=== PATIENT | male | born 1965 | race Two or more races ===

== ENCOUNTER 2020-10-29 11:10 | Emergency (ER) | payer OTHER ==
[2020-10-29] MEDS ORDERED: Diphtheria,Pertussis(Acell),Tetanus Vaccine 0.5 ML Syringe IM ONE (11:39)
--- NOTE | 2020-10-29 11:46 | EDM.PDOC ---
ED HPI GENERAL MEDICAL PROBLEM - General Chief Complaint: Upper Extremity Injury/Pain Stated Complaint: POSS HAND INFECTION/LAC Time Seen by Provider: 10/29/20 11:24 Source of Information: Reports: Patient, RN Notes Reviewed History Limitations: Reports: No Limitations - History of Present Illness INITIAL COMMENTS - FREE TEXT/NARRATIVE: Patient is a 54-year-old male who presents to the ER via direction from the [facility] clinic for a right hand wound. Patient notes he was at work, Tuesday, was holding onto some heavy machinery as he was getting raised into the air, and he was not paying attention to where his hand was at, and the dorsum of his hand was punctured by the head of the screw. This is about midway into the hand, and seems to be over the 3rd-4th finger distribution mainly. The area itself is open, draining some red blood type fluid. There is mild amount of swelling to the hand noted. Patient notes that the screw did come out intact. States that he went to the occupational med clinic today for evaluation, and was sent here as his tetanus booster was not up-to-date and they had suspected infection. The area is tender, there are no red streaks, that extend further from the injury site. States that he is right-hand dominant. 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 Has been taking Tylenol ibuprofen for the pain and it seems to help a little bit. Patient denies any other sick-like symptoms, fever/chills, cough/shortness of breath, nausea/vomiting/diarrhea. - Related Data Allergies Allergy/AdvReac Type Severity Reaction Status Date / Time No Known Allergies Allergy Verified 10/29/20 11:23 Home Meds: Home Meds Doxycycline [Vibramycin] 100 mg PO BID 7 Days #14 tab 10/29/20 [Rx] Past Medical History - Past Health History Medical/Surgical History: Denies Medical/Surgical History Social & Family History - Tobacco Use Tobacco Use Status *Q: Never Tobacco User Second Hand Smoke Exposure: No - Recreational Drug Use Recreational Drug Use: No Review of Systems - Review of Systems Review Of Systems: Comprehensive ROS is negative, except as noted in HPI. ED EXAM, GENERAL - Physical Exam Exam: See Below Exam Limited By: No Limitations General Appearance: Alert, WD/WN, No Apparent Distress Respiratory/Chest: No Respiratory Distress, Lungs Clear, Normal Breath Sounds, No Accessory Muscle Use, Chest Non-Tender Cardiovascular: Normal Peripheral Pulses, Regular Rate, Rhythm, No Edema Peripheral Pulses: 2+: Radial (L), Radial (R) Extremities: Normal Range of Motion, Normal Capillary Refill Neurological: Alert, Oriented, Normal Cognition, No Motor/Sensory Deficits Psychiatric: Normal Affect, Normal Mood Skin Exam: Warm, Dry, Normal Color, No Rash, Wound/Incision (puncture wound to the R hand dorsum, does have some bloody discharge from the wound, there is a mild amount of swelling noted.) Course - Vital Signs Last Recorded V/S: Last Vital Signs Temp 97.6 F 10/29/20 11:20 Pulse 51 L 10/29/20 11:20 Resp 16 10/29/20 11:20 BP 129/91 H 10/29/20 11:20 Pulse Ox 98 10/29/20 11:20 - Orders/Labs/Meds Orders: Active Orders 24 hr Category Date Time Status Vaccines to be Administered [RC] PER UNIT ROUTINE Care 10/29/20 11:40 Ordered Meds: Medications Discontinued Medications Generic Name Dose Route Start Last Admin Trade Name Freq PRN Reason Stop Dose Admin Diphtheria/Tetanus/Acell Pertussis 0.5 ml 10/29/20 11:39 Diphtheria,Pertussis(Acell),Tetanus Vaccine 0.5 Ml Syringe IM 10/29/20 11:40 .ONCE ONE - Re-Assessments/Exams Free Text/Narrative Re-Assessment/Exam: 10/29/20 11:45 Patient presents to the ER for his puncture wound of his right hand. For toda y's purposes we will go ahead and get him started on doxycycline, and update his tetanus booster, and release him to work with no restrictions. He will be given a work note for today's purposes. Departure - Departure Time of Disposition: 11:46 Disposition: Home, Self-Care 01 Condition: Good Clinical Impression: Puncture wound of hand Qualifiers: Encounter type: initial encounter Foreign body presence: without foreign body Laterality: right Qualified Code(s): S61.431A - Puncture wound without foreign body of right hand, initial encounter - Discharge Information *PRESCRIPTION DRUG MONITORING PROGRAM REVIEWED*: No *COPY OF PRESCRIPTION DRUG MONITORING REPORT IN PATIENT PATT: No Prescriptions: Doxycycline [Vibramycin] 100 mg PO BID 7 Days #14 tab Instructions: Puncture Wound, [id number] Referrals: PCP,None [Primary Care Provider] - Forms: ED Department Discharge, ED Return to Work/School Form Additional Instructions: You were evaluated in the ER today for the puncture wound on your right hand. Your tetanus booster was updated at today's visit. This is good for 10 years from today's date. You have been started on an antibiotic, for suspected bacterial infection. Doxycycline 1 tablet 2 times a day for the next 7 days. When you obtain this antibiotic today go ahead and take your first dose, and you can take your second dose a little bit later tonight before bedtime. This antibiotic can take up to 48 hours to start providing effect, if your wound is not much better, by Tuesday afternoon, please get seen by another provider for ongoing management. This medication was electronically sent to the [place] [facility] located in the [employer] store. Please continue to use 500 mg Tylenol or 600 mg ibuprofen every 6 hours as needed for ongoing pain management. Do not exceed 4000 mg Tylenol or 3200 mg ibuprofen in a 24-hour time span. Please keep the area clean and dry, you may cover the wound with a nonstick gauze, with a wrap-like bandage around the hand to keep the gauze in place while at work. Do not hesitate to return to the ER at any time if symptoms change or worsen. Sepsis Event Note (ED) - Focused Exam Vital Signs: Vital Signs Temp Pulse Resp BP Pulse Ox 10/29/20 11:20 97.6 F 51 L 16 129/91 H 98 - My Orders Last 24 Hours: My Active Orders 10/29/20 11:40 Vaccines to be Administered [RC] PER UNIT ROUTINE - Assessment/Plan Last 24 Hours: My Active Orders 10/29/20 11:40 Vaccines to be Administered [RC] PER UNIT ROUTINE
== END 2020-10-29 12:24 | disposition home or self-care (01) ==
LOC: JD.ED 11:10
DX: S61.431A Puncture wound without foreign body of right hand, initial encounter (principal); Z23 Encounter for immunization; W31.89XA Contact with other specified machinery, initial encounter; Y99.0 Civilian activity done for income or pay
CPT/HCPCS: 90471; 90715; 99282; 99283